=== PATIENT | male | born 1950 | race Caucasian/White ===

== ENCOUNTER 2018-02-15 10:57 | Emergency (ER) | payer OTHER ==
[~2018-02-15] VITALS: Ht 185.4 cm; Wt 148.5 kg
[2018-02-15 11:04] VITALS: BP 203/91; PULSE 80; RESP 18; TEMP 97.8; O2SAT 97
[2018-02-15] MEDS ORDERED: KETOROLAC TROMETHAMINE 30 MG/ML (IVP) VIAL IV PUSH ONE (11:30)
--- NOTE | 2018-02-15 11:41 | PD ---
HPI Chief Complaint: Pain: Acute or Chronic Time Seen by Provider: 11:11 Travel History International Travel<30 days: No Contact w/Intl Traveler<30days: No Traveled to known affect area: No History of Present Illness HPI 67 yo male here for evaluation of 8 days of right groin pain. Per patient he started about 8 days ago. Per patient all he did was get out of bed and is felt "a charley horse "on his right inner thigh. Per patient ever since has been having pain. Per patient she got concerned because the pain has not improved and he gets worse with movement. He cannot walk without having a little limp because of the discomfort. He already takes chronic pain medications including OxyContin. Per patient this does not seem to be helping much. Per patient he has not been able to follow-up with his doctor. Per patient he took a day off from work and went to work today but he could not move on his own and was sent here from work for evaluation. Denies any numbness , tingling, weakness. No falls or injuries. History of back problems for which she takes the pain medication. No allergies to medication. Has been trying [id number] remedies as well with no relief. No recent travel. No history of blood clots. PFSH Social History Alcohol Use: No Tobacco Use: No Substance Use: No Allergies-Medications (Allergen,Severity, Reaction): Coded Allergies: No Known Allergies (Unverified , 02/15/18) Reported Meds & Prescriptions Reported Meds & Active Scripts Active Walker with Front Wheels (Device) 1 Mis Mis Ea .XX DIRECTED Robaxin (Methocarbamol) 500 Mg Tab 500 Mg PO QID Diclofenac Sodium DR (Diclofenac Sodium) 75 Mg Tabdr 75 Mg PO BID PRN Review of Systems Except as stated in HPI: all other systems reviewed are Neg Physical Exam Narrative GENERAL: SKIN: Warm and dry. HEAD: Atraumatic. Normocephalic. EYES: Pupils equal and round. No scleral icterus. No injection or drainage. ENT: No nasal bleeding or discharge. Mucous membranes pink and moist. Tongue is midline. No uvula deviation. NECK: Trachea midline. No JVD. CARDIOVASCULAR: Regular rate and rhythm. No murmurs, S3, S4. RESPIRATORY: No accessory muscle use. Clear to auscultation. Breath sounds equal bilaterally. GASTROINTESTINAL: Abdomen soft, non-tender, nondistended. Hepatic and splenic margins not palpable. MUSCULOSKELETAL: Extremities without clubbing, cyanosis, or edema. No obvious deformities. Full range of motion of the upper and lower extremities bilaterally. 2+ pulses bilaterally. NEUROLOGICAL: Awake and alert. No obvious cranial nerve deficits. Motor grossly within normal limits. Five out of 5 muscle strength in the arms and legs. Normal speech. PSYCHIATRIC: Appropriate mood and affect; insight and judgment normal. Data Data Last Documented VS Vital Signs Date Time Temp Pulse Resp B/P (MAP) Pulse Ox O2 Delivery O2 Flow Rate FiO2 02/15/18 11:04 97.8 80 18 203/91 (128) 97 Orders Orders Basic Metabolic Panel (Bmp) (02/15/18 11:23) Magnesium (Mg) (02/15/18 11:23) Iv Access Insert/Monitor (02/15/18 11:23) Femur (Ap & Lat/2vws) (02/15/18 11:23) Us Leg Venous Doppler (02/15/18 ) Ketorolac Inj (Toradol Inj) (02/15/18 11:30) Coag Profile (02/15/18 11:23) Urinalysis - C+S If Indicated (02/15/18 11:27) Labs Laboratory Tests Test 02/15/18 12:06 Prothrombin Time 9.8 SEC Prothromb Time International Ratio 1.0 RATIO Activated Partial Thromboplast Time 27.6 SEC Urine Color YELLOW Urine Turbidity CLEAR Urine pH 5.0 Urine Specific [place] 1.012 Urine Protein NEG mg/dL Urine Glucose (UA) NEG mg/dL Urine Ketones NEG mg/dL Urine Occult Blood NEG Urine Nitrite NEG Urine Bilirubin NEG Urine Urobilinogen LESS THAN 2.0 MG/DL Urine Leukocyte Esterase NEG Urine RBC LESS THAN 1 /hpf Urine WBC 1 /hpf Urine Mucus FEW /lpf Microscopic Urinalysis Comment CULT NOT INDICATED Blood Urea Nitrogen 20 MG/DL Creatinine 1.05 MG/DL Random Glucose 101 MG/DL Calcium Level 8.5 MG/DL Magnesium Level 2.0 MG/DL Sodium Level 137 MEQ/L Potassium Level 5.0 MEQ/L Chloride Level 105 MEQ/L Carbon Dioxide Level 25.0 MEQ/L Anion Gap 7 MEQ/L Estimat Glomerular Filtration Rate 71 ML/MIN MDM Medical Decision Making Medical Screen Exam Complete: Yes Emergency Medical Condition: Yes Medical Record Reviewed: Yes Interpretation(s) CBC & BMP Diagram 02/15/18 12:06 Calcium Level 8.5, Magnesium Level 2.0 Last Impressions Femur X-Ray 02/15/18 1123 Signed Impressions: Service Date/Time: Thursday, February 15, 2018 11:44 - CONCLUSION: 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 Negrito Morris MD FACR Lower Extremity Ultrasound 02/15/18 0000 Signed Impressions: Service Date/Time: Thursday, February 15, 2018 11:44 - CONCLUSION: Negative for deep venous thrombosis. Negrito Morris MD FACR coags WNL UA negative Differential Diagnosis Groin pain versus DVT versus muscle strain versus muscle spasm versus arthritis versus UTI Narrative Course 67-year-old male that presents to the ED for evaluation of right groin pain. Patient was properly examined and was found to have signs and symptoms of unclear etiology. Labs and imaging ordered. Labs and imaging showed no sign of acute disease. Patient was reassured. This appears to be strain of the groin muscle. Patient already takes oxycodone. I will add an anti- inflammatory and a muscle relaxant. Patient was given a note for work. He was given a walker to use if needed. I recommend strongly that he follow with orthopedic doctor or his primary care doctor next week for further evaluation and treatment as he may have to switch his pain medications or have physical therapy to help him improve. See ED if worsening symptoms. Follow-up with PCP. Diagnosis Primary Impression: Groin strain Qualified Codes: S76.211A - Strain of adductor muscle, fascia and tendon of right thigh, initial encounter Additional Impression: Hip arthritis Referrals: Ama Patricia MD Patient Instructions: General Instructions Departure Forms: Tests/Procedures, Work Release Enter return to work date: Feb 18, 2018 Additional Instructions: Take medications as prescribed. Follow-up with PCP or orthopedic doctor this week for further evaluation and treatment. See ED for any worsening symptoms. Do not drink or drive while taking pain medication. Apply ice or heat as needed for pain Med/Other Pt SpecificInfo: Prescription(s) given Scripts Walker with Front Wheels (Walker with Front Wheels) 1 Mis Mis EA .XX DIRECTED, #1 0 Refills Prov: Ivette Hill MD 02/15/18 Methocarbamol (Robaxin) 500 Mg Tab 500 MG PO QID for Muscle Spasm, #20 TAB 0 Refills Prov: Ivette Hill MD 02/15/[address] (Diclofenac Sodium DR) 75 Mg Tabdr 75 MG PO BID Y for PAIN SCALE 1 TO 10, #20 TAB 0 Refills Prov: Ivette Hill MD 02/15/18 Disposition: 01 DISCHARGE HOME Condition: Stable Keegan Oakes Feb 15, 2018 11:41
--- NOTE | 2018-02-15 12:15 | RADRPT ---
EXAM DATE/TIME: 02/15/2018 11:44 [facility] COMPARISON: No previous studies available for comparison. INDICATIONS : Right leg pain. MEDICAL HISTORY : None. SURGICAL HISTORY : None. ENCOUNTER: Initial ACUITY: 1 day PAIN SCORE: 3/10 LOCATION: Right leg. TECHNIQUE: Venous ultrasound of the leg was performed from the inguinal ligament to the proximal calf. Real-malika e, color Doppler and spectral tracing, compression and augmentation techniques were used. FINDINGS: There is normal compressibility of the deep venous system from the inguinal region to the proximal ca lf. No echogenic clot is seen in the lumen of the common femoral, femoral, popliteal, and posterior tibial veins. There is a normal response of the venous system to proximal and distal augmentation an d respiration. CONCLUSION: Negative for deep venous thrombosis. Negrito Morris MD FACR on February 15, 2018 at 12:13 Board Certified Radiologist. This report was verified electronically.
--- NOTE | 2018-02-15 12:16 | RADRPT ---
EXAM DATE/TIME: 02/15/2018 11:44 [facility] COMPARISON: No previous studies available for comparison. INDICATIONS : Pain in right femur, medial side travels down groin. MEDICAL HISTORY : None. SURGICAL HISTORY : None. ENCOUNTER: Initial ACUITY: 4 - 6 days PAIN SCORE: 10/10 LOCATION: Right femur FINDINGS: Degenerative changes at the hip. Anatomic alignment. Fracture not appreciated. 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 Negrito Morris MD FACR on February 15, 2018 at 12:13 Board Certified Radiologist. This report was verified electronically.
[2018-02-15 12:28] LABS: BILIRUBIN, URINE NEG (NEG); BLOOD, URINE NEG (NEG); GLUCOSE,URINE NEG (NEG); KETONE, URINE NEG (NEG); MUCUS URINE FEW /lpf (OCC); NITRITE,URINE NEG (NEG); URINE COLOR YELLOW (YELLW/STRAW); URINE LEUKOCYTE ESTERASE NEG (NEG)
[2018-02-15 12:33] LABS: PROTHROMBIN TIME - PATIENT 9.8 SEC (9.8-11.6)
[2018-02-15 12:45] LABS: CALCIUM 8.5 MG/DL (8.5-10.1); CREATININE 1.05 MG/DL (0.60-1.30)
[2018-02-15] MEDS ORDERED: ROBA500T PO (12:53)
[2018-02-15] MEDS ORDERED: DICL75TA PO (12:53)
[2018-02-15] MEDS ORDERED: WALKER WHEELS/F1 MIS (12:54)
== END 2018-02-15 14:30 | disposition home or self-care (01) ==
LOC: NEPE 10:57
DX: S39.011A Strain of muscle, fascia and tendon of abdomen, initial encounter (principal); X58.XXXA Exposure to other specified factors, initial encounter; M16.10 Unilateral primary osteoarthritis, unspecified hip; M79.604 Pain in right leg; G89.29 Other chronic pain
CPT/HCPCS: 73552; 80048; 81001; 83735; 85610; 85730; 93971; 96374; 99285; J1885